=== PATIENT | female | born 1975 | race Caucasian/White ===

== ENCOUNTER 2016-10-18 12:12 | Emergency (ER) | payer MEDICAID ==
[2016-10-18 12:46] LABS: % BASOPHILS 0.1 % (0.0-2.0); % LYMPHOCYTES 12.8 % (20.0-50.0); % MONOCYTES 8.7 % (2.0-10.0); % NEUTROPHILS 77.4 % (40.0-80.0); HEMATOCRIT 36.8 % (35.0-45.0); HEMOGLOBIN 12.4 gm/dL (11.7-15.5); MEAN CELL VOLUME 86.7 fl (81-100); MEAN CORPUSCULAR HEMOGLOBIN 29.3 pg (27.0-31.0); MEAN CORPUSCULAR HGB CONC 33.8 pg (28.0-36.0); MEAN PLATELET VOLUME 8.7 fl; NEUTROPHILE ABSOLUTE 5.8 Th/cmm (1.8-8.0); PLATELET COUNT 284 Th/cmm (150-400); RED BLOOD COUNT 4.24 Mil/cmm (3.80-5.10); RED CELL DISTRIBUTION WIDTH 13.7 % (11.5-20.0); WHITE BLOOD COUNT 7.4 Th/cmm (4.8-10.8)
[2016-10-18 13:00] LABS: ALB/GLOB RATIO 1.5 (1.0-1.8); ALKALINE PHOSPHATASE 35 U/L (34-104); ANION GAP 8.9 (7.0-16.0); BILIRUBIN,TOTAL 0.4 mg/dL (0.3-1.0); BUN - UREA NITROGEN 13 mg/dL (7-25); CALCIUM SERUM 9.6 mg/dL (8.6-10.3); CHLORIDE 107 mEq/L (98-107); GLUCOSE 115 mg/dL (70-105); POTASSIUM SERUM 3.9 mEq/L (3.5-5.1); SGOT 17 U/L (13-39); SGPT/ALT 16 U/L (7-52); SODIUM SERUM 136 mEq/L (136-145)
[2016-10-18 13:01] LABS: CHOLESTEROL 241 mg/dL (<200); TRIGLYCERIDES 171 mg/dL (<150)
[2016-10-18 13:10] LABS: INR 0.9 (0.5-1.4); PROTHROMBIN TIME (TEST) 9.3 SECONDS (9.5-11.5)
[2016-10-18] MEDS ORDERED: cefTRIAXone 1 GM in Sodium Chloride 0.9% 50 ML IV ONE (13:25)
--- NOTE | 2016-10-18 13:38 | ED Physician Chart ---
Chief Complaint/HPI - Patient Information Date Seen:: 10/18/16 Time Seen:: 13:30 Chief Complaint:: CHEST PAIN History of Present Illness:: THIS IS A 41 YO FEMALE WITH THE SUDDEN ONSET OF CHEST TIGHTNESS WITH SOME SHORTNESS OF BREATH. SHE DENIES HAVING A PREVIOUS HEART PROBLEM AND THERE IS NO FAMILY HISTORY OF HEART DISEASE. SHE DENIES HAVING DIABETES AND HYPERTENSION. SHE ADMITS TO OLD CHEST SURGERY WITH PARTIAL RIB REMOVAL. SHE ADMITS TO SMOKING BUT NO ALCOHOL OF ILLEGAL DRUGS. Allergies:: Allergies Allergy/AdvReac Type Severity Reaction Status Date / Time Penicillins [PCN] AdvReac Verified 10/18/16 12:19 Sulfa (Sulfonamide AdvReac Verified 10/18/16 12:20 Antibiotics) Vitals:: Vital Signs - 8 hr 10/18/16 12:20 Temp 97.3 F HR 96 RR 15 BP 137/88 O2 Sat % 98 Historian:: Patient Review:: Nurse's Note Reviewed Review of Systems - Review of Systems General/Constitutional: No fever, No chills, No weight loss, No weakness, No diaphoresis, No edema, No loss of appetite Skin: No skin lesions, No rash, No bruising Head: No headache, No light-headedness Eyes: No loss of vision, No pain, No diplopia ENT: No earache, No nasal drainage, No sore throat, No tinnitus Neck: No neck pain, No swelling, No thyromegaly, No stiffness, No mass noted Cardio Vascular: Chest pain, No palpitations, No PND, No orthopnea, No edema Pulmonary: SOB, No cough, No sputum, No wheezing GI: Nausea, No vomiting, No diarrhea, No pain, No melena, No hematochezia, No constipation, No hematemesis G/U: No dysuria, No frequency, No hematuria Musculoskeletal: No bone or joint pain, No back pain, No muscle pain Endocrine: No polyuria, No polydipsia Psychiatric: Prior psych history, No depression, No anxiety, No suicidal ideation Hematopoietic: No bruising, No lymphadenopathy Allergic/Immuno: No urticaria, No angioedema Neurological: No syncope, No focal symptoms, No weakness, No paresthesia, No headache, No seizure, No dizziness, No confusion, No vertigo Past Medical History - Past Medical History Obtainable: Yes Past Medical History: Dyslipidemia, Other (ANXIETY) Family History: None Social History: Smoker, No Alcohol, No Drug Use, Employed Surgical History: other (ANKLE SURGERY, THORACIC OUTLET SYNDROME SURGERY, RIGHT THUMB SURGEY.) Psychiatricy History: Depression Family Medical History - Family Member Mother History Unknown: Yes Hx Family Cancer: No Hx Family Hypertension: No Hx Family Stroke: No Hx Family Diabetes: No Hx Family Seizures: No Hx Family AIDS: No Hx Family COPD: No Hx Family Psychiatric Problems: No Physical Exam - Physical Examination General/Constitutional: Awake, Well-developed, well-nourished, Alert, No distress, GCS 15, Non-toxic appearing, Ambulatory Head: Atraumatic Eyes: Lids, conjuctiva normal, PERRL, EOMI Skin: Nl inspection, No rash, No skin lesions, No ecchymosis, Well hydrated, No lymphadenopathy ENMT: External ears, nose nl, Nasal exam nl, Lips, teeth, gums nl Neck: Nontender, Full ROM w/o pain, No JVD, No nuchal rigidity, No bruit, No mass, No stridor Respiratory: Nl effort/Exclusion, Clear to Auscultation, No Wheeze/Rhonchi/Rales Cardio Vascular: RRR, No murmur, gallop, rubs, NL S1 S2 Other Cardio Vascular comments:: MILD TACHYCARDIA OF 98 BPM. GI: No tenderness/rebounding/guarding, No organomegaly, No hernia, Normal BS's, Nondistended, No mass/bruits, No McBurney tenderness : No CVA tenderness Extremities: No tenderness or effusion, Full ROM, normal strength in all extremities, No edema, Normal digits & nails Other Extremities comments:: LEFT ANKLE PAIN FROM OLD SURGERY PAIN. Neuro/Psych: Alert/oriented, DTR's symmetric, Normal sensory exam, Normal motor strength, Judgement/insight normal, Mood normal, Normal gait, No focal deficits Misc: normal gait, Normal back, No paraspinal tenderness Labs/Radiology/EKG Results - Lab Results Results: Laboratory Tests 10/18/16 10/18/16 10/18/16 12:30 12:30 12:30 WBC 7.4 RBC 4.24 Hgb 12.4 Hct 36.8 MCV 86.7 MCH 29.3 MCHC Differential 33.8 RDW 13.7 Plt Count 284 MPV 8.7 Neutrophils % 77.4 Lymphocytes % 12.8 L Monocytes % 8.7 Eosinophils % 1.0 Basophils % 0.1 PT 9.3 L INR 0.90 PTT (Actin FS) 23.9 L Sodium Potassium Chloride Carbon Dioxide Anion Gap BUN Creatinine Est GFR ( Amer) Est GFR (Non-Af Amer) BUN/Creatinine Ratio Glucose Calcium Total Bilirubin AST ALT Alkaline Phosphatase Troponin I Total Protein Albumin Globulin Albumin/Globulin Ratio Triglycerides 171 H Cholesterol 241 H LDL Cholesterol Direct 170 HDL Cholesterol 62 10/18/16 10/18/16 12:30 12:30 WBC RBC Hgb Hct MCV MCH MCHC Differential RDW Plt Count MPV Neutrophils % Lymphocytes % Monocytes % Eosinophils % Basophils % PT INR PTT (Actin FS) Sodium 136 Potassium 3.9 Chloride 107 Carbon Dioxide 24.0 Anion Gap 8.9 BUN 13 Creatinine 1.0 Est GFR ( Amer) > 60.0 Est GFR (Non-Af Amer) > 60.0 BUN/Creatinine Ratio 13.0 Glucose 115 H Calcium 9.6 Total Bilirubin 0.4 AST 17 ALT 16 Alkaline Phosphatase 35 Troponin I < 0.01 L Total Protein 7.1 Albumin 4.2 Globulin 2.9 Albumin/Globulin Ratio 1.5 Triglycerides Cholesterol LDL Cholesterol Direct HDL Cholesterol - Radiology Results Results: CHEST X-RAY = NAD - EKG Interpretations EKG Time:: 13:52 Rate & Rhythm: RATE=90, NSR [place]: RIGHT AXIS Assessment - Assessment General Assessment: ANXIETY CHEST WALL PAIN ED Septic Shock - . Is Septic Shock (SBP<90, OR Lactate>4 mmol\L) present?: No - <6hrs of presentation: Vital Signs: Vital Signs - 8 hr 10/18/16 12:20 Temp 97.3 F HR 96 RR 15 BP 137/88 O2 Sat % 98 Reassessment (Disposition) - Reassessment Reassessment Condition:: Improved - Diagnosis Diagnosis:: ANXIETY REACTION ATYPICAL CHEST PAIN LEFT ANKLE PAIN - Aftercare/Follow up Instructions Aftercare/Follow-Up Instructions:: Counseled pt regarding lab results/diagnosis & need follow up, Refer to Discharge Instructions, Counseled pt & family regarding lab results/diagnosis & need follow up - Patient Disposition Discharge/Transfer:: Home Condition at Disposition:: Improved ED Discharge Plan - Patient Disposition Admit/Discharge/Transfer: PT DISCHARGED HOME Condition at Disposition: Improved
[2016-10-18 13:39] LABS: URINE BILIRUBIN NEGATIVE (NEGATIVE); URINE BLOOD NEGATIVE (NEGATIVE); URINE GLUCOSE (UA) NEGATIVE (NEGATIVE); URINE KETONE NEGATIVE (NEGATIVE); URINE PH 5.5 (4.6 - 8.0); URINE PROTEIN NEGATIVE (NEGATIVE); URINE UROBILINOGEN 0.2 E.U./dL (0.2 - 1.0)
[2016-10-18 13:40] LABS: URINE COLOR YELLOW
[2016-10-18 13:50] LABS: URINE BACTERIA OCCASIONAL /hpf (NONE SEEN); URINE EPITHELIAL CELLS FEW /lpf (FEW); URINE RBC 0-1 /hpf (0-5); URINE WBC 0-2 /hpf (0-5)
[2016-10-18 13:55] LABS: AMPHETAMINE URINE NEGATIVE (NEGATIVE); BARBITURATES URINE NEGATIVE (NEGATIVE); METHADONE URINE NEGATIVE (NEGATIVE)
[2016-10-18] MEDS ORDERED: Aspirin 81mg Chewable Tab PO STA (13:57)
--- NOTE | 2016-10-18 20:07 | Diagnostic Imaging Report ---
CHEST X-RAY: AP view INDICATION: pain COMPARISON: None FINDINGS: Mild chronic lung changes are noted. There is no focal consolidation or pleural effusions The heart is normal in size. The osseous structures demonstrate no acute abnormalities. IMPRESSION: Mild chronic lung changes. No focal consolidation identified.
== END 2016-10-18 15:05 | disposition home or self-care (01) ==
LOC: ER 12:12
DX: R07.89 Other chest pain (principal); F41.9 Anxiety disorder, unspecified; M25.572 Pain in left ankle and joints of left foot; E78.5 Hyperlipidemia, unspecified; F17.200 Nicotine dependence, unspecified, uncomplicated; Z88.0 Allergy status to penicillin; Z88.2 Allergy status to sulfonamides
CPT/HCPCS: 99285; 96374; 96375; 96376; 93005; 71010; 84484 ×2; 36415; 80307; 84443; 85025; 85610; 85730; 81001; 83036; 81025; 80053; 80061; J1885; J2060 ×2; J0696